=== PATIENT | female | born 1945 | race Caucasian/White ===

== ENCOUNTER 2019-02-05 19:24 | Emergency (ER) | payer MEDICARE ==
[2019-02-05] MEDS ORDERED: DOXYcycline CAP(*) 100 MG PO ONE ×2 (20:18→21:00)
--- NOTE | 2019-02-05 20:23 | ED ---
Skin Complaint - HPI Summary HPI Summary: Patient complains of right foot pain and redness starting yesterday. History of DM, severe neuropathy. Denies known trauma, wound. History of surgery to same area March 2018. Denies fever, cough, sore throat, CP, SOB, N/C/D, abdominal pain, change in urine, change in BM. - History of Current Complaint Chief Complaint: EDExtremityLower Time Seen by Provider: 02/05/19 19:57 Stated Complaint: "LEFT FOOT PAIN PER PT" Hx Obtained From: Patient, Family/Tabulating Supervisor Onset/Duration: Started Hours Ago Skin Exposure Onset/Duration: Hours Ago Timing: Intermittent Onset Severity: Mild Current Severity: Mild Pain Intensity: 2 Pain Scale Used: 0-10 Numeric Skin Location: Discrete Character: Pain, Redness Aggravating Symptom(s): Touch Associated Signs & Symptoms: Negative - Allergy/Home Medications Allergies/Adverse Reactions: Allergies Allergy/AdvReac Type Severity Reaction Status Date / Time amoxicillin Allergy Diarrhea Verified 02/05/19 19:28 cephalexin [From Keflex] Allergy Diarrhea Verified 02/05/19 19:28 statins Allergy Muscle Ache Uncoded 02/05/19 19:28 PMH/Surg Hx/FS Hx/Imm Hx Endocrine/Hematology History: Denies: Hx Anticoagulant Therapy Cardiovascular History: Denies: Hx Pacemaker/ICD History: Denies: Hx Dialysis Sensory History: Denies: Hx Eye Prosthesis Opthamlomology History: Denies: Hx Legally Blind EENT History: Denies: Hx Deafness Infectious Disease History: Yes Infectious Disease History: Denies: Traveled Outside the [place] in Last 30 Days - Family History Known Family History: Positive: Non-Contributory - Social History Alcohol Use: None Substance Use Type: Reports: None Smoking Status (MU): Never Smoked Tobacco Review of Systems Constitutional: Negative Eyes: Negative ENT: Negative Cardiovascular: Negative Respiratory: Negative Gastrointestinal: Negative Genitourinary: Negative Musculoskeletal: Negative Skin: Other Neurological: Negative Psychological: Normal All Other Systems Reviewed And Are Negative: Yes Physical Exam - Summary Physical Exam Summary: To 1 cm x 1 cm spots of possible irritation to dorsal surface of distal foot. Very mild localized erythema surrounding. Some extra warmth to area versus left foot. PMS intact distally. Triage Information Reviewed: Yes Vital Signs On Initial Exam: Initial Vitals Temp Pulse Resp BP Pulse Ox 97.8 F 69 18 199/74 99 12/25/19 19:29 02/05/19 19:29 02/05/19 19:29 02/05/19 19:29 02/05/19 19:29 Vital Signs Reviewed: Yes Appearance: Positive: Well-Appearing Skin: Positive: Warm Head/Face: Positive: Normal Head/Face Inspection Eyes: Positive: Normal Neck: Positive: Supple Respiratory/Lung Sounds: Positive: Clear to Auscultation Cardiovascular: Positive: Normal Abdomen Description: Positive: Nontender Musculoskeletal: Positive: Normal Neurological: Positive: Normal Psychiatric: Positive: Normal AVPU Assessment: Alert - [place] Coma Scale Best Eye Response: 4 - Spontaneous Best Motor Response: 6 - Obeys Commands Best Verbal Response: 5 - Oriented Coma Scale Total: 15 Procedures - Sedation Patient Received Moderate/Deep Sedation with Procedure: No Diagnostics - Vital Signs Vital Signs Temp Pulse Resp BP Pulse Ox 02/05/19 19:29 97.8 F 69 18 199/74 99 - Laboratory Lab Statement: Any lab studies that have been ordered have been reviewed, and results considered in the medical decision making process. Course/Dx - Course Course Of Treatment: Patient complains of right foot pain and redness starting yesterday. History of DM, severe neuropathy. Denies known trauma, wound. History of surgery to same area March 2018. Denies fever, cough, sore throat , CP, SOB, N/C/D, abdominal pain, change in urine, change in BM. Vital signs within normal limits. Physical exam unremarkable. Rx for doxycycline. - Diagnoses Provider Diagnoses: Cellulitis Discharge ED - Sign-Out/Discharge Documenting (check all that apply): Patient Departure - Discharge Plan Condition: Stable Disposition: HOME Prescriptions: DOXYcycline CAP(*) [DOXYcycline 100MG CAP(*)] 100 mg PO BID 8 Days #16 cap Patient Education Materials: Cellulitis (ED) Referrals: No Primary Care Phys,NOPCP [Primary Care Provider] - Additional Instructions: You have been supplied with doxycycline for 2 days from the ED. Prescription for 8 days worth has been sent to [facility]. Follow-up with primary care. Return to the ED for any new or worsening symptoms. - Billing Disposition and Condition Condition: STABLE Disposition: Home - Attestation Statements Provider Attestation: I was available for consult. This patient was seen by the GARR[facility]. The patient was not presented to, seen by, or examined by me. Rafy Martinez MD
[2019-02-05 21:12] VITALS: BP 149/43
== END 2019-02-05 21:11 | disposition home or self-care (01) ==
LOC: ED 19:24
DX: L03.115 Cellulitis of right lower limb (principal); Z88.0 Allergy status to penicillin; Z88.1 Allergy status to other antibiotic agents; Z88.8 Allergy status to other drugs, medicaments and biological substances
CPT/HCPCS: 99283; A9270-GY

== ENCOUNTER 2024-01-15 17:00 | Inpatient (IN) ==
[2024-01-15 17:46] LABS: ABS Basophils 0.1 10^3/uL (0.0-0.1); ABS Eosinophils 0.1 10^3/uL (0.0-0.5); ABS Lymphocytes 1.3 10^3/uL (1.0-4.8); ABS Neutrophils 8.8 10^3/uL (1.5-7.6); ABS Nucleated RBC 0.01 10^3/ul; Eosinophil % 0.9 %; Hematocrit 38.7 % (35-45); Lymphocyte % 11.8 %; Mean Corpuscular Hemoglobin 29.2 pg (27-33); Mean Corpuscular Hgb Conc 33.7 g/dL (31-36); Mean Corpuscular Volume 86.6 fL (80-97); Mean Platelet Volume 9.6 fL (7.5-11.2); Nucleated Red Blood Cells % 0.1 %/100WBC (0.0-0.8); Platelet Count 285 10^3/uL (150-450); Red Blood Count 4.46 10^6/uL (3.63-4.92); Red Cell Distribution Width 13.8 % (12-17); White Blood Count 11.3 10^3/uL (3.8-11.8)
[2024-01-15 18:09] LABS: Glucose 649 mg/dL (70-100)
[2024-01-15 18:10] LABS: ALT 20 U/L (7-52); Albumin 4.3 g/dL (3.2-5.2); Albumin/Globulin Ratio 1.5 (1-3); Alcohol, S < 13 mg/dL (<13); Alkaline Phosphatase 151 U/L (35-149); Anion Gap 12 mmol/L (2-16); Blood Urea Nitrogen 29 mg/dL (6-24); CO2 Carbon Dioxide 24 mmol/L (22-32); Calcium 10.4 mg/dL (8.6-10.3); Chloride 91 mmol/L (101-111); Creatinine, Serum 1.17 mg/dL (0.51-0.95); Globulin 2.8 g/dL (2-4); Sodium 127 mmol/L (135-145); Total Bilirubin 0.6 mg/dL (0.2-1.0); Total Protein 7.1 g/dL (6.4-8.9); eGFR CKD-EPI 47.8 (>60)
[2024-01-15] MEDS: Ondansetron 4 mg VIAL 2 MG/ML 2 ml VIAL IV ONE ×2 (18:16→19:58)
[2024-01-15] MEDS: Lactated Ringers 1000 ml BAG 1,000 ML IV ONE ×2 (18:19→19:58)
[2024-01-15] MEDS: Morphine 4 MG/ML VIAL (1 ml) IV ONE (18:20)
[2024-01-15 18:47] LABS: Urine Appearance Clear; Urine Bacteria Absent /HPF (Absent); Urine Bilirubin Negative (Negative); Urine Blood 1+ (Negative); Urine Color Colorless; Urine Glucose 4+ (>=1000 mg/dL) (Negative); Urine Ketones 1+ (Negative); Urine Nitrite Negative (Negative); Urine Protein 1+ (>=30 mg/dL) (Negative); Urine Red Blood Cell Trace(0-2/hpf) /HPF (0-Trace); Urine Squamous Epithelial Cell Present /HPF (Absent); Urine Urobilinogen Negative (Negative); Urine White Blood Cell Trace(0-5/hpf) /HPF (0-Trace); Urine pH 7.5 (5.0-8.0)
[2024-01-15 20:03] LABS: Potassium Redraw 4.3 mmol/L (3.5-5.0)
[2024-01-15] MEDS ORDERED: Dextrose 50% Syringe 50 ml 25 GM/50 ML SYRINGE IV PUSH PRN (20:10)
[2024-01-15] MEDS: NORMOSOL-R pH 7.4 1000 mL BAG 1,000 ML IV SCH (20:42)
[2024-01-15] MEDS: Insulin Infusion 100unit/100mL 100 UNIT/100 ML BAG IV SCH (20:43)
[2024-01-15] MEDS: hydrALAZINE 20 mg/ml 1 ML Vial IV IV SLOW PU ONE (21:11)
[2024-01-16 00:53] LABS: Glucose Confirmatory 422 mg/dL (70-100)
[2024-01-16 02:56] LABS: Magnesium 1.9 mg/dL (1.9-2.7); Phosphorus 2.5 mg/dL (2.5-5.0)
[2024-01-16 03:49] LABS: Calcium 9.2 mg/dL (8.6-10.3); Creatinine, Serum 0.99 mg/dL (0.51-0.95); Potassium 4.6 mmol/L (3.5-5.0); eGFR CKD-EPI 58.4 (>60)
[2024-01-16 03:59] LABS: Osmolality Serum 305 mOsm/kg (275-295)
[2024-01-16] MEDS: NS 0.45% 1000 ml BAG 1,000 ML IV SCH (04:35)
[2024-01-16] MEDS: D5LR 1000 ml BAG 1,000 ML IV SCH (07:34)
[2024-01-16] MEDS: Insulin GLARGINE 100 un/ml 10 ml VIAL SUBCUT ONE (08:17)
[2024-01-17] MEDS: Insulin GLARGINE 100 un/ml 10 ml VIAL SUBCUT SCH ×2 (08:51→20:20)
[2024-01-17 10:06] LABS: ABS Basophils 0.1 10^3/uL (0.0-0.1); ABS Lymphocytes 1.1 10^3/uL (1.0-4.8); ABS Monocytes 0.8 10^3/uL (0.0-0.9); ABS Neutrophils 11.8 10^3/uL (1.5-7.6); ABS Nucleated RBC 0.01 10^3/ul; Eosinophil % 0.3 %; Hematocrit 38.1 % (35-45); Hemoglobin 12.6 g/dL (11.5-14.3); Mean Corpuscular Hemoglobin 28.7 pg (27-33); Mean Corpuscular Hgb Conc 33.1 g/dL (31-36); Mean Corpuscular Volume 86.7 fL (80-97); Mean Platelet Volume 9.4 fL (7.5-11.2); Platelet Count 298 10^3/uL (150-450); Red Blood Count 4.39 10^6/uL (3.63-4.92); Red Cell Distribution Width 13.7 % (12-17); White Blood Count 13.8 10^3/uL (3.8-11.8)
[2024-01-17 10:45] LABS: Calcium 9.2 mg/dL (8.6-10.3); Creatinine, Serum 1.05 mg/dL (0.51-0.95); Magnesium 1.9 mg/dL (1.9-2.7); Potassium 4.2 mmol/L (3.5-5.0); eGFR CKD-EPI 54.4 (>60)
[2024-01-17 13:34] LABS: TSH Ultra Thyroid Stim Horm 0.71 mcIU/mL (0.34-5.60)
[2024-01-17] MEDS ORDERED: Insulin GLARGINE 100 un/ml 10 ml VIAL SUBCUT SCH (21:00)
[2024-01-18 06:49] LABS: Hematocrit 37.5 % (35-45); Hemoglobin 12.9 g/dL (11.5-14.3); Mean Corpuscular Hemoglobin 29.4 pg (27-33); Mean Corpuscular Hgb Conc 34.4 g/dL (31-36); Mean Corpuscular Volume 85.5 fL (80-97); Mean Platelet Volume 9.2 fL (7.5-11.2); Platelet Count 250 10^3/uL (150-450); Red Blood Count 4.38 10^6/uL (3.63-4.92); Red Cell Distribution Width 13.9 % (12-17); White Blood Count 9.8 10^3/uL (3.8-11.8)
[2024-01-18 07:34] LABS: Calcium 9.3 mg/dL (8.6-10.3); Creatinine, Serum 0.91 mg/dL (0.51-0.95); Potassium 4.5 mmol/L (3.5-5.0); eGFR CKD-EPI 64.6 (>60)
[2024-01-18 07:35] LABS: Magnesium 2.2 mg/dL (1.9-2.7)
[2024-01-18 13:40] VITALS: BP 126/76
== END 2024-01-18 14:14 | DRG 637 ==
LOC: ED 17:00 → EDHOLD 22:01 → SUATTDRO 22:01 → MEDTELE 01-16 10:20 → EDHOLD 01-16 12:58 → MED 01-16 15:17
PROVIDERS: ADMIT Internal Medicine; ATTEND Internal Medicine